=== PATIENT | female | born 1945 | race American Indian/Alaskan Native ===

== ENCOUNTER 2019-04-26 08:38 | Emergency (ER) | payer MEDICARE ==
[2019-04-26 08:45] VITALS: BP 111/68
[2019-04-26] MEDS ORDERED: SOLU-Medrol IM ONE (09:13)
[2019-04-26] MEDS ORDERED: CLARITIN PO ONE (09:13)
[2019-04-26] MEDS ORDERED: PEPCID PO ONE (09:13)
--- NOTE | 2019-04-26 09:27 | Emergency Department Report ---
ED General Adult HPI - General Chief complaint: Animal Bite Stated complaint: STUNG BY BEES Time Seen by Provider: 04/26/19 08:55 Source: patient Mode of arrival: Ambulatory Limitations: No Limitations - History of Present Illness Initial comments: This 73-year-old female presents to ED complaining of insects sustained that happened around 7 AM this morning as she was cleaning soup in her front porch. Patient states that she thinks was a yellowjacket or be stronger once in the finger and on the right cheek. Patient admits to pain on the right cheek. She was stung. She denies any other symptoms - Related Data Previous Rx's Medication Instructions Recorded Last Taken Type methOCARBAMOL [Robaxin] 500 mg PO BID PRN #14 tab 12/15/13 Unknown Rx traMADol [Ultram] 50 mg PO Q6HR PRN #20 tablet 12/15/13 Unknown Rx cephALEXin [Keflex] 500 mg PO Q8HR #15 cap 04/26/19 Unknown Rx Allergies Allergy/AdvReac Type Severity Reaction Status Date / Time No Known Allergies Allergy Unverified 12/15/13 12:01 ED Review of Systems ROS: Stated complaint: STUNG BY BEES Other details as noted in HPI Comment: All other systems reviewed and negative ED Past Medical Hx - Past Medical History Hx Hypertension: Yes Hx Diabetes: Yes Additional medical history: cholesterol - Surgical History Additional Surgical History: ectopic - Social History Smoking Status: Former Smoker Substance Use Type: None - Medications Home Medications: Home Medications Medication Instructions Recorded Confirmed Last Taken Type methOCARBAMOL [Robaxin] 500 mg PO BID PRN #14 tab 12/15/13 Unknown Rx traMADol [Ultram] 50 mg PO Q6HR PRN #20 tablet 12/15/13 Unknown Rx cephALEXin [Keflex] 500 mg PO Q8HR #15 cap 04/26/19 Unknown Rx ED Physical Exam - General Limitations: No Limitations General appearance: alert, in no apparent distress - Head Head exam: Present: atraumatic, normocephalic - Eye Eye exam: Present: normal appearance, PERRL. Absent: conjunctival injection, periorbital swelling, periorbital tenderness Pupils: Present: normal accommodation - ENT ENT exam: Present: mucous membranes moist - Neck Neck exam: Present: normal inspection, full ROM, other (no airway compromise). Absent: tenderness, lymphadenopathy - Respiratory Respiratory exam: Present: normal lung sounds bilaterally. Absent: respiratory distress, wheezes - Cardiovascular Cardiovascular Exam: Present: regular rate, normal rhythm. Absent: systolic murmur, diastolic murmur, rubs, gallop - Extremities Exam Extremities exam: Present: normal inspection - Neurological Exam Neurological exam: Present: alert, oriented X3 - Psychiatric Psychiatric exam: Present: normal affect, normal mood - Skin Skin exam: Present: warm, dry, intact, normal color, erythema (to the right cheek from insect sting). Absent: rash, urticaria, petechiae, pallor, abrasion ED Course Vital Signs 04/26/19 08:41 Temperature 98.6 F Pulse Rate 88 Respiratory 18 Rate Blood Pressure 111/68 O2 Sat by Pulse 96 Oximetry ED Medical Decision Making - Medical Decision Making 73-year-old female presents insisting to the cheek. Patient received Solu Medrol IM, Pepcid and Claritin. Patient unable to receive Benadryl as she is driving home. Discussed the patient's peak Benadryl from the pharmacy when she picks up her antibiotics and use Benadryl as needed for itching Vital signs are normal patient is in no acute or respiratory distress. Critical care attestation.: If time is entered above; I have spent that time in minutes in the direct care of this critically ill patient, excluding procedure time. ED Disposition Clinical Impression: Insect bite or sting Disposition: DC-01 TO HOME OR SELFCARE Is pt being admited?: No Does the pt Need Aspirin: No Condition: Stable Instructions: Insect Bite or Sting (ED) Additional Instructions: Make sure to follow up with the primary care physician as discussed. Take all your medications as you've been prescribed. If you have any worsening symptoms or develop new symptoms please return to ED immediately. Prescriptions: cephALEXin [Keflex] 500 mg PO Q8HR #15 cap Referrals: PRIMARY CARE, [Primary Care Provider] - 3-5 Days [facility] [Provider Group] - 3-5 Days Forms: Accompanied Note, Work/School Release Form(ED) Time of Disposition: 09:31
== END 2019-04-26 09:45 | disposition home or self-care (01) ==
LOC: ED 08:38
DX: S00.86XA Insect bite (nonvenomous) of other part of head, initial encounter (principal); I10 Essential (primary) hypertension; E11.9 Type 2 diabetes mellitus without complications; Z87.891 Personal history of nicotine dependence; Z79.899 Other long term (current) drug therapy; W57.XXXA Bitten or stung by nonvenomous insect and other nonvenomous arthropods, initial encounter; Y93.89 Activity, other specified; Y92.89 Other specified places as the place of occurrence of the external cause; Y99.8 Other external cause status
CPT/HCPCS: 96372; 99282; J2920

== ENCOUNTER 2022-04-13 17:30 | Emergency (ER) | payer MEDICARE ==
[2022-04-13 18:01] VITALS: BP 155/90
== END 2022-04-14 22:38 | disposition left against medical advice (07) ==
LOC: ED 17:30
DX: S01.91XA Laceration without foreign body of unspecified part of head, initial encounter (principal); R42 Dizziness and giddiness; Z53.21 Procedure and treatment not carried out due to patient leaving prior to being seen by health care provider; W19.XXXA Unspecified fall, initial encounter; Y93.89 Activity, other specified; Y92.89 Other specified places as the place of occurrence of the external cause; Y99.8 Other external cause status